=== PATIENT | female | born 1980 | race Caucasian/White ===

== ENCOUNTER 2018-10-07 16:21 | Emergency (ER) | payer OTHER, MEDICAID ==
[~2018-10-07] VITALS: Ht 160 cm; Wt 111.7 kg
[2018-10-07 16:55] VITALS: BP 189/73
--- NOTE | 2018-10-07 17:34 | NUR ---
PT TO BED 3 VIA WHEELCHAIR
--- NOTE | 2018-10-07 17:37 | NUR ---
38 YO F BIB FOR ABSCESS TO THE BACK OF THE NECK X 3 DAYS. N/V X THIS MORNING W/ FEVER YESTERDAY. AFEBRILE AT THIS TIME. NO ANTIPYRETICS. LEFT SHUNT. STILL PRODUCES URINE APPROX 3X/DAY. DIALYSIS M, W, F. REPORTS INTERMITTENT DIZZNESS WHEN SHE TURNS HER NECK.
--- NOTE | 2018-10-07 17:50 | NUR ---
PT A&OX4, C/O ABSCESS TO RIGHT SIDE POSTERIOR NECK X 3 DAYS. PT STS PAIN 10/10. NO ACTIVE DRAINAGE NOTED OR REPORTED.
[2018-10-07] MEDS ORDERED: HYDROcodone/APAP 5/325 MG 1 TAB TAB PO ONE (18:10)
[2018-10-07 18:16] VITALS: BP 189/73
--- NOTE | 2018-10-07 18:17 | NUR ---
Patient discharged with v/s stable. Written and verbal after care instructions given and explained. Patient alert, oriented and verbalized understanding of instructions. Ambulatory with steady gait. All questions addressed prior to discharge. ID band removed. Patient advised to follow up with PMD. Rx of NORCO, CEPHALEXIN given. Patient educated on indication of medication including possible reaction and side effects. Opportunity to ask questions provided and answered.
== END 2018-10-07 18:17 | disposition home or self-care (01) ==
LOC: MED 16:21
DX: L03.221 Cellulitis of neck (principal); E11.9 Type 2 diabetes mellitus without complications; I10 Essential (primary) hypertension; N28.9 Disorder of kidney and ureter, unspecified; Z99.2 Dependence on renal dialysis; Z98.890 Other specified postprocedural states
CPT/HCPCS: 99283

== ENCOUNTER 2018-10-11 10:45 | Emergency (ER) | payer OTHER, MEDICAID ==
[~2018-10-11] VITALS: Ht 172.7 cm; Wt 108.9 kg
[2018-10-11 11:00] VITALS: BP 141/74
--- NOTE | 2018-10-11 11:14 | NUR ---
PATIENT TAKEN TO ER BED 10 VIA PERSONAL WHEELCHAIR
--- NOTE | 2018-10-11 11:33 | NUR ---
PT C/O NECK ABSCESS WITH PAIN. PT STATES ABSCESS STARTED SMALL AND HAS GROWN IN SIZE AND PAIN HAS INCREASED WITH MOVEMENT. VSS; PATIENT POSITIONED FOR COMFORT; HOB ELEVATED; BEDRAILS UP X1; BED DOWN. ER MD MADE AWARE OF PT STATUS.
[2018-10-11] MEDS ORDERED: LIDOCAINE 2% 1000 MG/50 ML VIAL INJ ONE (11:35)
[2018-10-11] MEDS ORDERED: IBUPROFEN 800 MG TAB PO ONE (12:00)
[2018-10-11 12:38] VITALS: BP 141/74
--- NOTE | 2018-10-11 12:38 | NUR ---
Patient discharged with v/s stable. Written and verbal after care instructions given and explained. Patient alert, oriented and verbalized understanding of instructions. Ambulatory with steady gait. All questions addressed prior to discharge. ID band removed. Patient advised to follow up with PMD. Rx of BACTRIM AND TRAMADOL given. Patient educated on indication of medication including possible reaction and side effects. Opportunity to ask questions provided and answered.
== END 2018-10-11 12:38 | disposition home or self-care (01) ==
LOC: MED 10:45
DX: L02.11 Cutaneous abscess of neck (principal); E11.9 Type 2 diabetes mellitus without complications; I10 Essential (primary) hypertension; N28.9 Disorder of kidney and ureter, unspecified; Z99.2 Dependence on renal dialysis
CPT/HCPCS: 10060; 99283; J2001

== ENCOUNTER 2018-10-14 13:46 | Emergency (ER) | payer OTHER, MEDICAID ==
[~2018-10-14] VITALS: Ht 172.7 cm; Wt 109.8 kg
[2018-10-14 13:55] VITALS: BP 144/71
--- NOTE | 2018-10-14 14:52 | NUR ---
PT IN OWN PERSONAL WHEELCHAIR TO ER BED 11
--- NOTE | 2018-10-14 15:02 | NUR ---
PT. BIB FAMILY MEMBER FOR RECHECK FOR ABSCESS ON HER NECK SEEN ON 10/11/18. PT STATES " I AM HERE TO GET THE PACKING REMOVED, DR. ABRAMS TOLD ME". CLEAN AND COOL TO TOUCH NO DRAINAGE NOTED TO ABSCESS ON BACK OF NECK. PT DENIES ANY N/V/D. DENIES ANY FEVERS OR CHILLS. ER MD MADE AWARE. SAFETY PRECAUTIONS IN PLACE. WILL CONTINUE TO MONITOR. PROVIDED WITH ICE CHIPS. HX; HTN, DM, RENAL DZ, LT ARM AV SHUNT
[2018-10-14 15:28] VITALS: BP 147/68
--- NOTE | 2018-10-14 15:28 | NUR ---
Patient discharged with v/s stable. Written and verbal after care instructions given and explained. Patient verbalized understanding. Wheel Chair Assisted with steady gait. All questions addressed prior to discharge. Advised to follow up with PMD.
== END 2018-10-14 15:28 | disposition home or self-care (01) ==
LOC: MED 13:46
DX: M54.2 Cervicalgia (principal); I12.9 Hypertensive chronic kidney disease with stage 1 through stage 4 chronic kidney disease, or unspecified chronic kidney disease; E11.22 Type 2 diabetes mellitus with diabetic chronic kidney disease; N18.6 End stage renal disease; Z99.2 Dependence on renal dialysis; Z98.890 Other specified postprocedural states
CPT/HCPCS: 99283

== ENCOUNTER 2019-01-18 14:42 | Emergency (ER) | payer OTHER, MEDICAID ==
[~2019-01-18] VITALS: Ht 172.7 cm; Wt 108.9 kg
[2019-01-18 14:54] VITALS: BP 200/92
--- NOTE | 2019-01-18 15:31 | NUR ---
BIB . AAO X4 C/O CHEST PAIN WITH TIGHTNESS 8/10, COUGH WITH GREEN SPUTUM, SOB, SORE THROAT X2 DAYS. EQUAL CLEAR RAEANN LUNGS UPON AUSCULTATION. PT O2 SAT 100% RA. PT PLACED ON FULL DESK CLERKS SUPERVISOR. HOB UP. BED SIDE RAILS UP X1. ON LOW BED POSITION, LOCKED. ER TO EVALUATE PT.
--- NOTE | 2019-01-18 15:31 | NUR ---
Patient ambulated to bed 6. RN evaluating patient at bedside.
[2019-01-18] MEDS ORDERED: methylPREDNISolone SS 125 MG/2 ML VIAL IVP ONE (15:50)
[2019-01-18] MEDS ORDERED: IPRATROPIUM 0.02% 0.5 MG/2.5 ML NEBU INH ONE (15:50)
[2019-01-18] MEDS ORDERED: FUROSEMIDE 40 MG/4 ML VIAL IVP ONE (15:50)
[2019-01-18] MEDS ORDERED: ALBUTEROL 0.083% 2.5 MG/3 ML NEBU INH ONE (15:50)
--- NOTE | 2019-01-18 16:03 | NUR ---
ADMITTING CHEST PAIN HX: DENIES ASTHMA/COPD C/O SOB EDUCATION PROVIDED TO PATIENT WITH ACKNOWLEDGEMENT ON HHN THERAPY AND RESPIRATORY DRUGS FOREMENTIONED GIVEN ORDERED ENCOURAGED PATIENT FOR INTERMITTENT DEEP BREATHING DURING THERAPY
--- NOTE | 2019-01-18 16:05 | NUR ---
Breathing treatment administered at bedside by respiratory therapist.
[2019-01-18 16:32] LABS: BASOPHILS # (AUTO) 0.1 K/uL (0.00-0.22); BASOPHILS % (AUTO) 1.2 % (0.0-2.0); EOSINOPHILS # (AUTO) 0.4 K/uL (0-0.4); EOSINOPHILS % (AUTO) 3.7 % (0.0-4.0); HEMATOCRIT 28.9 % (36-48); HEMOGLOBIN 9.7 g/dL (12.0-16.0); LYMPHOCYTES % (AUTO) 21.3 % (20.5-51.1); MEAN CORPUSCULAR HEMOGLOBIN 34 pg (27-31); MEAN CORPUSCULAR HGB CONC 34 g/dL (33-37); MEAN CORPUSCULAR VOLUME 99.9 fL (80-94); MONOCYTES # (AUTO) 0.6 K/uL (0.8-1.0); MONOCYTES % (AUTO) 6.5 % (1.7-9.3); NEUTROPHILS # (AUTO) 6.4 K/uL (1.8-7.7); NEUTROPHILS % (AUTO) 67.3 % (42.2-75.2); PLATELET COUNT (AUTO) 216 K/uL (140-450); RED BLOOD CELL COUNT(AUTO) 2.89 MIL/uL (4.20-5.40); RED CELL DISTRIBUTION WIDTH 16.8 % (11.6-13.7); WHITE BLOOD COUNT (AUTO) 9.6 K/uL (4.8-10.8)
[2019-01-18] MEDS ORDERED: MORPHINE SULFATE 4 MG/ML SYR IM ONE (16:45)
[2019-01-18 16:49] LABS: ALBUMIN 3.2 g/dL (3.4-5.0); ANION GAP 14.8 (8-16); POTASSIUM 4.8 mmol/L (3.5-5.1); TOTAL BILIRUBIN 0.4 mg/dL (0.0-1.0)
[2019-01-18 16:55] LABS: CREATININE 9.1 mg/dL (0.6-1.3)
--- NOTE | 2019-01-18 17:40 | NUR ---
PT WHEEL CHAIR ASSISTED TO THE BATHROOM. ACCOMPANIED .
--- NOTE | 2019-01-18 17:50 | NUR ---
PT BACK TO BED VIA WHEEL CHAIR. PT PLACED BACK TO ON CLIENT SUCCESS SPECIALIST.
--- NOTE | 2019-01-18 18:15 | NUR ---
PT BP ELEVATED: 170/80, 71. NO SIGNS AND SYMPTOMS OF DISTRESS NOTED. DR MERCHANT NOTIFIED. NO FURTHER ORDERS.
[2019-01-18 18:35] VITALS: BP 170/80
--- NOTE | 2019-01-18 18:35 | NUR ---
Patient discharged with v/s stable. Written and verbal after care instructions given and explained. Patient alert, oriented and verbalized understanding of instructions. Wheel Chair Assisted by to car. All questions addressed prior to discharge. ID band removed. Patient advised to follow up with PMD. Rx of Tramadol Hydrochloride given. Patient educated on indication of medication including possible reaction and side effects. Opportunity to ask questions provided and answered.
== END 2019-01-18 18:35 | disposition home or self-care (01) ==
LOC: MED 14:42
DX: R07.89 Other chest pain (principal); R05 Cough; E11.22 Type 2 diabetes mellitus with diabetic chronic kidney disease; I12.0 Hypertensive chronic kidney disease with stage 5 chronic kidney disease or end stage renal disease; N18.6 End stage renal disease; Z89.511 Acquired absence of right leg below knee
CPT/HCPCS: 36415; 71045; 80053; 83880; 84484; 85025; 94640; 96374; 96375; 99284; J1940; J2270; J2930; J7613; J7644; Q0092

== ENCOUNTER 2020-05-16 19:26 | Emergency (ER) | payer OTHER, MEDICAID ==
[~2020-05-16] VITALS: Ht 172.7 cm; Wt 104.3 kg
[2020-05-16 19:45] VITALS: BP 195/87
[2020-05-16] MEDS ORDERED: MORPHINE SULFATE 4 MG/ML SYR IM ONE (20:05)
[2020-05-16] MEDS ORDERED: LIDOCAINE/EPI 1% 1:100000 20 ML VIAL INJ ONE (20:05)
[2020-05-16] MEDS ORDERED: CLINDAMYCIN 600 MG/4 ML VIAL IM ONE (20:05)
[2020-05-16] MEDS ORDERED: HYDROcodone/APAP 5/325 MG 1 TAB TAB PO ONE (21:00)
[2020-05-16 21:07] VITALS: BP 182/81
== END 2020-05-16 21:07 | disposition home or self-care (01) ==
LOC: MED 19:26
DX: L02.416 Cutaneous abscess of left lower limb (principal); E11.22 Type 2 diabetes mellitus with diabetic chronic kidney disease; I12.0 Hypertensive chronic kidney disease with stage 5 chronic kidney disease or end stage renal disease; N18.6 End stage renal disease; Z99.2 Dependence on renal dialysis; Z98.890 Other specified postprocedural states
CPT/HCPCS: 10060; 96372; 99284; J2001; J2270; J3490

== ENCOUNTER 2020-05-19 19:39 | Emergency (ER) | payer OTHER, MEDICAID ==
[~2020-05-19] VITALS: Ht 172.7 cm; Wt 108.9 kg
[2020-05-19 19:53] VITALS: BP 156/71
[2020-05-19] MEDS ORDERED: NEOMYCIN/POLYMYXIN/BACITRACIN 0.9 GM/1 PKT TP ONE ×3 (20:10→20:15)
[2020-05-19] MEDS ORDERED: NEOMYCIN/POLYMYXIN/BACITRACIN OIN 15 GM TUBE TP ONE (20:10)
[2020-05-19 20:17] VITALS: BP 156/71
== END 2020-05-19 20:15 | disposition home or self-care (01) ==
LOC: MED 19:39
DX: L02.416 Cutaneous abscess of left lower limb (principal); R03.0 Elevated blood-pressure reading, without diagnosis of hypertension; Z48.00 Encounter for change or removal of nonsurgical wound dressing; E11.9 Type 2 diabetes mellitus without complications; I10 Essential (primary) hypertension; Z87.448 Personal history of other diseases of urinary system
CPT/HCPCS: 99282

== ENCOUNTER 2020-12-02 03:40 | Inpatient (IN) | payer OTHER, MEDICAID, SELFPAY ==
[~2020-12-02] VITALS: Ht 172.7 cm; Wt 97.5 kg
[2020-12-02 03:44] VITALS: BP 150/73
--- NOTE | 2020-12-02 03:44 | NUR ---
TO BED VIA WHEELCHAIR
--- NOTE | 2020-12-02 04:01 | NUR ---
40 Y/O FEMALE CAME TO THE ED WITH ABSCESS IN THE BUTTOCKS. PT STATES THAT SHE STARTED HAVING ABSCESS TWO WEEKS AGO, THEN IT "POPPED". SHE STATES 10/10 SHARP PAIN. NKA PMH: DM, HTN, DIALYSIS, HLD
--- NOTE | 2020-12-02 04:09 | NUR ---
Dr. Espinoza examining patient.
[2020-12-02] MEDS ORDERED: ONDANSETRON 4 MG ODT PO ONE ×3 (04:20→07:25)
[2020-12-02] MEDS ORDERED: HYDROcodone/APAP 10/325 MG 1 TAB TAB PO ONE (04:20)
[2020-12-02] MEDS ORDERED: CLINDAMYCIN 600 MG/4 ML VIAL IM ONE (04:20)
[2020-12-02] MEDS ORDERED: LIDOCAINE MPF 1% 10 MG/ML VIAL INJ ONE (04:25)
--- NOTE | 2020-12-02 04:30 | NUR ---
BLOOD LABS COLLECTED AND SENT TO LAB
[2020-12-02 05:01] LABS: BASOPHILS # (AUTO) 0.1 K/uL (0.00-0.22); BASOPHILS % (AUTO) 0.7 % (0.0-2.0); EOSINOPHILS # (AUTO) 0.2 K/uL (0-0.4); EOSINOPHILS % (AUTO) 2.3 % (0.0-4.0); HEMATOCRIT 32.1 % (36-48); HEMOGLOBIN 10.8 g/dL (12.0-16.0); LYMPHOCYTES # (AUTO) 1.2 K/uL (2.5-16.5); LYMPHOCYTES % (AUTO) 11.4 % (20.5-51.1); MEAN CORPUSCULAR HEMOGLOBIN 32 pg (27-31); MEAN CORPUSCULAR HGB CONC 34 g/dL (33-37); MEAN CORPUSCULAR VOLUME 96.3 fL (80-94); MONOCYTES # (AUTO) 0.8 K/uL (0.8-1.0); MONOCYTES % (AUTO) 7.8 % (1.7-9.3); NEUTROPHILS # (AUTO) 7.9 K/uL (1.8-7.7); NEUTROPHILS % (AUTO) 77.8 % (42.2-75.2); PLATELET COUNT (AUTO) 193 K/uL (140-450); RED BLOOD CELL COUNT(AUTO) 3.33 MIL/uL (4.20-5.40); RED CELL DISTRIBUTION WIDTH 15.3 % (11.6-13.7); WHITE BLOOD COUNT (AUTO) 10.2 K/uL (4.8-10.8)
[2020-12-02 05:10] LABS: ALBUMIN 3.3 g/dL (3.4-5.0); ANION GAP 15.4 (8-16); CARBON DIOXIDE 26.3 mmol/L (21-32); POTASSIUM 4.7 mmol/L (3.5-5.1); TOTAL BILIRUBIN 0.3 mg/dL (0.0-1.0)
[2020-12-02 05:12] LABS: CREATININE 9.2 mg/dL (0.6-1.3)
--- NOTE | 2020-12-02 05:18 | NUR ---
COLLECTED ABSCESS CULTURE; SENT TO LAB, HANDED TO GOKUL
--- NOTE | 2020-12-02 05:46 | NUR ---
PT TAKEN TO CT
--- NOTE | 2020-12-02 05:58 | NUR ---
PT RETURN FROM CT
--- NOTE | 2020-12-02 06:49 | NUR ---
COLLECTED NIGHAT; SENT TO LAB HANDED TO CPT ISIDRO
[2020-12-02] MEDS ORDERED: INSU100S53 SC (06:55)
[2020-12-02] MEDS ORDERED: INSU100S45 SUBQ (06:55)
[2020-12-02] MEDS ORDERED: LISI20TA30 PO (06:55)
[2020-12-02] MEDS ORDERED: OMEP20TC12 PO (06:55)
[2020-12-02] MEDS ORDERED: CALC-1123 PO (06:57)
[2020-12-02] MEDS ORDERED: AMLO2.5T PO (06:58)
[2020-12-02] MEDS ORDERED: MORPHINE SULFATE 4 MG/ML SYR IM ONE (07:00)
[2020-12-02] MEDS ORDERED: MORPHINE SULFATE 4 MG/ML SYR IVP SCH (07:10)
[2020-12-02] MEDS ORDERED: ONDANSETRON 4 MG/2 ML VIAL IVP ONE (07:10)
--- NOTE | 2020-12-02 07:19 | NUR ---
RAD AT BEDSIDE
--- NOTE | 2020-12-02 07:23 | NUR ---
REPORT RECEIVED FROM HEENA JUNIOR, TRANSFER OF CARE AT THIS TIME
--- NOTE | 2020-12-02 07:27 | NUR ---
GIVEN REPORT TO MITCHELL JUNIOR FOR CONTINUITY OF CARE
--- NOTE | 2020-12-02 07:57 | NUR ---
RECEIVED REPORT FROM ER NURSE MITCHELL PATIENT IS AAOX4 ON ROOM AIR. AMBULATORY,NPO WITH RIGHT LOWER LEG PROSTHETIC, LEFT UPPER ARM AV SHUNT, SKIN INTACT AND CC OF ABSCESS IN THE RIGHT GLUTEAL FOR 2 WEEKS CAME FROM HOME AND NEGATIVE RAPID. NORCO PAIN MEDS GIVEN AT 0325 AM FOR PAIN 10/10 AND MORPHINE AT 0700. CLINDAMYCIN GIVEN 600MG AND ZOFRAN.
--- NOTE | 2020-12-02 08:02 | NUR ---
REPORT GIVEN TO TEJA JUNIOR FOR ADMINISSION TO MED/SURG 119B. ETA 10 MINS
--- NOTE | 2020-12-02 08:03 | NUR ---
Female Dust Control Engineer accompanied female patient for ABCESS NEAR GENITALIA Exam.
[2020-12-02] MEDS ORDERED: ONDANSETRON 4 MG/2 ML VIAL IM/IVP PRN (08:10)
[2020-12-02] MEDS ORDERED: guaiFENesin DM 200/20 MG-10 ML 10 ML UDC PO PRN (08:10)
[2020-12-02] MEDS ORDERED: ZOLPIDEM 5 MG TAB PO PRN (08:10)
[2020-12-02] MEDS ORDERED: DOCUSATE SODIUM 100 MG GELCAP PO PRN (08:10)
[2020-12-02] MEDS ORDERED: POTASSIUM CHLORIDE 10 MEQ TABER PO PRN (08:10)
[2020-12-02] MEDS ORDERED: ACETAMINOPHEN 325 MG TAB PO PRN (08:10)
--- NOTE | 2020-12-02 08:17 | NUR ---
Patient will be admitted to care of Dr. Sonido Little. Admited to Med/Surg. Will go to room 119B. Belongings list completed. Report to Tonia JUNIOR.
[2020-12-02 08:20] VITALS: BP 155/55
--- NOTE | 2020-12-02 08:20 | NUR ---
PATIENT BROUGHT TO THE UNIT VIA GURNEY ASSISTED TO BED AND CHECK VITAL SIGNS BP 155/55 NM 70 RR 18 TEMP 98.5 OXYGEN SATURATION 98% ORIENTED TO ROOM SAFETY MEASURES IN PLACE AND CALL LIGHT WITHIN REACH. WILL CONTINUE TO MONITOR.
--- NOTE | 2020-12-02 08:35 | NUR ---
MRSA NARES RIGHT AND LEFT TAKEN AND SENT TO LAB.
[2020-12-02 08:38] LABS: PROTHROMBIN TIME 9.2 secs (10.8-13.4)
[2020-12-02 08:43] LABS: CHOL/HDL RATIO 6.6 (1-4.5); FREE T4 (FREE THYROXINE) 1.12 ng/dL (0.76-1.46); MAGNESIUM 2.6 mg/dL (1.8-2.4); PHOSPHORUS 2.3 mg/dL (2.5-4.9); THYROID STIMULATING HORMONE 4.3 uIU/mL (0.34-3.74)
--- NOTE | 2020-12-02 08:49 | NUR ---
CONSENT GIVEN BY PATIENT AT BEDSIDE FOR INCISION AND DRAINAGE OF ABSCESS ON THE RIGHT BUTTOCKS UNDER DR MARIN.
--- NOTE | 2020-12-02 08:55 | NUR ---
PATIENT CONSENTED TO DO HEMODIALYSIS TODAY.
[2020-12-02] MEDS: PANTOPRAZOLE 40 MG TABEC PO SCH (09:00)
--- NOTE | 2020-12-02 09:20 | NUR ---
PATIENT OUT IN HER ROOM FOR SURGERY PT IS STABLE
[2020-12-02] MEDS ORDERED: ONDANSETRON 4 MG/2 ML VIAL ONE (09:30)
[2020-12-02] MEDS ORDERED: PROPOFOL 200 MG/20 ML VIAL IV ONE (09:30)
[2020-12-02] MEDS ORDERED: fentaNYL citrate 0.05 MG/ML VIAL ONE (09:30)
[2020-12-02] MEDS ORDERED: DESFLURANE 240 ML BTL INH ONE (09:30)
[2020-12-02] MEDS ORDERED: HYDROmorphone PFS 2 MG/ML SYR ONE (10:08)
[2020-12-02] MEDS: HYDROmorphone 1 MG/ML AMP IVP PRN ×2 (10:11→10:24)
--- NOTE | 2020-12-02 10:30 | NUR ---
PATIENT HAS BEEN SCREENED AND CATEGORIZED MODERATE NUTRITION RISK. PATIENT WILL BE SEEN WITHIN 3-5 DAYS OF ADMISSION. 12/05/20 12/07/[address]
--- NOTE | 2020-12-02 11:00 | NUR ---
PATIENT BACK IN HER ROOM S/P INCISION AND DRAINAGE ON RIGHT BUTTOCK. DRY AND INTACT. CHECK VITAL SIGNS BP 141/63 WA 80 RR 20 TEMP 97.5 OXYGEN SAT 95% PT IS AWAKE AND STABLE NO DISTRESS NOTED.
--- NOTE | 2020-12-02 11:30 | NUR ---
CALLED DIALYSIS NURSE ABOUT PATIENT HEMODIALYSIS TODAY.
[2020-12-02] MEDS: DEXT 5% /NACL 0.9% 1,000 ML IV SCH ×2 (11:40→21:30)
[2020-12-02] MEDS: HYDROcodone/APAP 7.5/325 MG 1 TAB PO PRN ×2 (11:51→17:46)
[2020-12-02 12:00] VITALS: BP 141/63
--- NOTE | 2020-12-02 12:47 | NUR ---
SOCIAL WORK NOTE: Patient's Orientation Person Situation Place Time Information Provided By PATIENT Comments SW MET PATIENT AT BEDSIDE TO COMPLETE ASSESSMENT. Manager Technical Training, Realtionship and Phone Number JASON CHAIREZ [phone] Healthcare Power of Broadcast Traffic Coordinator No Does Patient Have a POLST No Identifying Problems No Social Work Triggers Is A Social Work Consult Needed No Mandate Report Filed No Explanation Of Identifying Problems PATIENT IS A 40-YEAR-OLD FEMLAE ADMITTED FOR RIGHT SIDED GLUTEAL ABSCESS. PATIENT HAS PMHX OF HYPERTENSION, DIABETES, AND RENAL DISEASE. Admitted From Home Pre-Admission Level Of Functioning Status Assist With ADL Level Of Functioning Comment PATIENT STATED THAT SHE NEEDS ASSISTANCE WITH MEDICATION MANAGEMENT, INSULIN, BATHING, AND PREPARING MEALS. Prior Resources/Services Used In Last 12 Months [facility] Prior Resources/Service Comments PATIENT RECEIVES 104 HOURS FROM [facility] MONTHLY. Prior DME Walker Wheelchair Dialysis Hemodialysis Name And Phone Number of Dialysis Facility LOCATED WITHIN [facility] Living Situation Lives With Family House Patient Had Caregiver [place] and Contact Number Of Designated Caregiver JASON CHAIREZ - [phone] Home Support No Caregiver Issues Financial Issues No Known Financial Issue Referral To The Financial Counselor Needed No Factors/Needs No D/C Needs Identified Pt/Rep Participated In Discharge Plan Yes Patient/Family Agress With Discharge Plan Yes Discharge Plan Comments TENTATIVE DISCHARGE PLAN IS FOR PATIENT TO RETURN HOME. DC Plan Status Initiated
--- NOTE | 2020-12-02 13:50 | NUR ---
DC PLANNIN YRS OLD FEMALE PATIENT WAS ADMITTED FROM HOME WITH A DX OF RIGHT SIDED GLUTEAL ABSCESS. PT HAS A HX OF HTN, DM, AND ESRD ON HEMODIALYSIS --, RT BUTTOCK WOUND AND DKA. CT PELVIS SHOWED SOFT TISSUE LESION ALONG THE RIGHT MEDIAL BUTTOCK. ADMINISTERED IVF, IV ABX ROCEPHIN. CONSULTED WITH SURGEON AND NEPHRO. DR MARIN PERFORMED I&D OF RIGHT BUTTOCK. DC PLAN TO GO HOME WHEN STABLE CM TO FOLLOW.
--- NOTE | 2020-12-02 15:08 | NUR ---
PATIENT STARTED ON HEMODIALYSIS. PT STABLE
[2020-12-02 16:00] VITALS: BP 138/74
--- NOTE | 2020-12-02 17:16 | NUR ---
MADE ROUNDS PATIENT ON GOING DIALYSIS, PT IS STABLE AND NO DISTRESS NOTED.
--- NOTE | 2020-12-02 17:46 | NUR ---
PATIENT COMPLAINS OF PAIN / CHECK VITAL SIGNS PRIOR TO MEDICATION BP 140/59 RI 79. PT IS STABLE AND EATING COMFORTABLY.
--- NOTE | 2020-12-02 18:14 | NUR ---
HEMODIALYSIS COMPLETE 3LITERS OUTPUT.
--- NOTE | 2020-12-02 19:25 | NUR ---
ENDORSED TO NIGHT NURSE FOR CONTINUITY OF CARE.PT IS STABLE.
--- NOTE | 2020-12-02 19:26 | NUR ---
RECEIVED PATIENT FROM AM SHIFT RN AWAKE, ALERT ORIENTED X4. ON BED WELL RESTED. NO ACUTE DISTRESS. BREATHING REGULAR NON LABORED, ON IVF INFUSING WELL. SKIN WARM AND DRY TO TOUCH. DENIES PAIN AT THIS TIME. NEEDS WELL ATTENDED. PATIENT STILL UNABLE TO OBTAIN URINE FOR DRUG SCREENING. WILL CONTINUE TO MONITOR.
[2020-12-02 20:00] VITALS: BP 148/76
--- NOTE | 2020-12-02 21:40 | NUR ---
CHECKED PATIENT LYING COMFORTABLY IN BED NO DISTRESS. AFEBRILE.
--- NOTE | 2020-12-02 23:45 | NUR ---
MADW ROUNDS PATIENT SLEEPING, CALL LIGHT WITHIN REACH.
[2020-12-03 04:00] VITALS: BP 153/71
[2020-12-03 06:29] LABS: BASOPHILS % (AUTO) 0.3 % (0.0-2.0); EOSINOPHILS % (AUTO) 0.2 % (0.0-4.0); HEMOGLOBIN 9.4 g/dL (12.0-16.0); LYMPHOCYTES # (AUTO) 1.1 K/uL (2.5-16.5); LYMPHOCYTES % (AUTO) 12.6 % (20.5-51.1); MEAN CORPUSCULAR HEMOGLOBIN 33 pg (27-31); MEAN CORPUSCULAR HGB CONC 34 g/dL (33-37); MEAN CORPUSCULAR VOLUME 96.8 fL (80-94); MONOCYTES # (AUTO) 0.8 K/uL (0.8-1.0); MONOCYTES % (AUTO) 8.7 % (1.7-9.3); NEUTROPHILS % (AUTO) 78.2 % (42.2-75.2); PLATELET COUNT (AUTO) 192 K/uL (140-450); RED CELL DISTRIBUTION WIDTH 15.2 % (11.6-13.7)
[2020-12-03] MEDS ORDERED: MORPHINE SULFATE 2 MG/ML SYR IVP PRN ×2 (07:05→09:05)
[2020-12-03 07:07] LABS: ANION GAP 17.4 (8-16); CARBON DIOXIDE 21.8 mmol/L (21-32); POTASSIUM 5.2 mmol/L (3.5-5.1)
--- NOTE | 2020-12-03 07:30 | NUR ---
RECEIVED BEDSIDE REPORT FROM TERRAZZO WORKER APPRENTICE NURSE. PATIENT AOX4. PATIENT ABLE TO MAKE NEEDS KNOWN. RESPIRATION EVEN AND UNLABORED. NO RESPIRATORY DISTRESS NOTED. IV SITE ON RH 24G INFUSING FLUIDS WELL. INTACT AND PATENT. SKIN WARM AND DRY TO TOUCH. NOTED OPEN WOUND ON RIGHT BUTTOCKS. S/P INCISION AND DRAIN OF RIGHT ABSCESS. PLAN OF CARE DISCUSSED. SAFETY PRECAUTIONS IN PLACE. CALL LIGHT WITHIN REACH. WILL CONTINUE TO MONITOR.
[2020-12-03 07:42] LABS: CREATININE 7.3 mg/dL (0.6-1.3)
[2020-12-03 08:00] VITALS: BP 147/68
[2020-12-03 08:07] LABS: T4 (THYROXINE) 7.7 ug/dL (4.5-12.0)
[2020-12-03] MEDS ORDERED: DEXTROSE 50% 50 ML SYR IVP PRN (08:15)
[2020-12-03] MEDS: INSULIN LISPRO SLIDING SCALE 100 UNITS/ML VIAL SUBQ PRN ×4 (08:45→20:53)
--- NOTE | 2020-12-03 09:00 | NUR ---
ALL SCHEDULED MEDS GIVEN. PT IS STABLE. NO DISTRESS NOTED. WILL CONTINUE TO MONITOR.
[2020-12-03] MEDS: PANTOPRAZOLE 40 MG TABEC PO SCH (09:01)
[2020-12-03] MEDS: HYDROmorphone 2 MG TAB PO PRN ×3 (10:20→23:44)
--- NOTE | 2020-12-03 10:20 | NUR ---
PATIENT COMPLAINED OF 10/10 PAIN RIGHT GLUTEAL PAIN. ADMINISTERED OXYCONTIN PO PER MD ORDERED.
[2020-12-03] MEDS: DEXT 5% /NACL 0.9% 1,000 ML IV SCH (10:50)
[2020-12-03] MEDS: BLOOD GLUCOSE MONITORING 1 DEV DEV FS SCH ×3 (12:07→20:52)
--- NOTE | 2020-12-03 12:24 | NUR ---
BLOOD GLUCOSE CHECK IS 355. ADMINISTERED 10 UNITS OF INSULIN SQ PER MD ORDERED.
--- NOTE | 2020-12-03 15:45 | NUR ---
CHECKED ON PATIENT. PATIENT IS STABLE. NO DISTRESS NOTED. WILL CONTINUE TO MONITOR.
--- NOTE | 2020-12-03 17:10 | NUR ---
DRESSED PACKING AND DRESSING. KEPT CLEAN AND DRY. MEDICATED WITH OXYCONTIN PO PRN PRIOR TO DRESSING CHANGE TO REDUCE PAIN.
--- NOTE | 2020-12-03 17:20 | NUR ---
BLOOD SUGAR CHECK IS 278. ADMINISTERED 6 UNITS OF INSULIN SQ PER MD ORDERED.
--- NOTE | 2020-12-03 19:30 | NUR ---
ENDORSED TO LOGISTICIAN NURSE FOR CONTINUITY OF CARE. PT IS STABLE.
[2020-12-03 20:00] VITALS: BP 150/63
--- NOTE | 2020-12-03 20:00 | NUR ---
RECEIVED REPORT FROM DAY RN EARLIER REGARDING THE PATIENT FOR CONTINUITY OF CARE. PATIENT LAYING IN BED NOT IN ANY DISTRESS AND NO COMPLAIN AT THIS TIME.SP I & D OF THE RT BUTTOCKS. DRESSING C/D/I, NO OOZING NOTED. VSS, AFEBRILE, SATING 98% ON RA. FALL PRECAUTION IMPLEMENTED.PT VERBALIZED UNDERSTANDING WITH THE POC. CALL LIGHT WITHIN REACH. WILL CONTINUE POC.
--- NOTE | 2020-12-03 22:00 | NUR ---
CHECKED THE BLOOD SUGAR 258. SSI GIVEN PER ORDER.
--- NOTE | 2020-12-04 | NUR ---
MEDICATED THE PT FOR PAIN EARLIER. NO COMPLAIN AT THIS TIME.
--- NOTE | 2020-12-04 02:00 | NUR ---
PATIENT ASLEEP AT THIS TIME. VISIBLE CHEST RISE AND FALL NOTED. SAFETY MEASURES IN PLACED.
[2020-12-04 04:00] VITALS: BP 149/71
--- NOTE | 2020-12-04 04:00 | NUR ---
VITAL SIGNS STABLE, AFEBRILE, SATING 99% ON RA. NO COMPLAIN OF PAIN AT THIS TIME.
--- NOTE | 2020-12-04 05:03 | NUR ---
OFFERED TO DO SITZ BATH AND DRESSING CHANGE ON THE PATIENT RIGHT BUTTOCKS BUT THE PT REFUSED.
--- NOTE | 2020-12-04 06:00 | NUR ---
PT STABLE. NO ACUTE EVENTS THROUGHOUT THE NIGHT. PATIENT NOT IN ANY DISTRESS. NO COMPLAIN AT THIS TIME.ALL NEEDS ATTENDED. WILL ENDORSE TO THE ONCOMING RN FOR CONTINUITY OF CARE.
[2020-12-04] MEDS: BLOOD GLUCOSE MONITORING 1 DEV DEV FS SCH ×2 (06:21→11:22)
[2020-12-04] MEDS: INSULIN LISPRO SLIDING SCALE 100 UNITS/ML VIAL SUBQ PRN ×2 (06:22→11:35)
[2020-12-04 07:12] LABS: BASOPHILS # (AUTO) 0.1 K/uL (0.00-0.22); EOSINOPHILS # (AUTO) 0.3 K/uL (0-0.4); EOSINOPHILS % (AUTO) 3.9 % (0.0-4.0); HEMATOCRIT 28.7 % (36-48); HEMOGLOBIN 9.4 g/dL (12.0-16.0); LYMPHOCYTES # (AUTO) 1.7 K/uL (2.5-16.5); LYMPHOCYTES % (AUTO) 23.8 % (20.5-51.1); MEAN CORPUSCULAR HEMOGLOBIN 33 pg (27-31); MEAN CORPUSCULAR HGB CONC 33 g/dL (33-37); MONOCYTES # (AUTO) 0.8 K/uL (0.8-1.0); MONOCYTES % (AUTO) 10.5 % (1.7-9.3); NEUTROPHILS # (AUTO) 4.4 K/uL (1.8-7.7); NEUTROPHILS % (AUTO) 60.8 % (42.2-75.2); PLATELET COUNT (AUTO) 82 K/uL (140-450); RED BLOOD CELL COUNT(AUTO) 2.84 MIL/uL (4.20-5.40); RED CELL DISTRIBUTION WIDTH 15.6 % (11.6-13.7); WHITE BLOOD COUNT (AUTO) 7.2 K/uL (4.8-10.8)
[2020-12-04 07:33] LABS: ANION GAP 17.7 (8-16); CARBON DIOXIDE 21.1 mmol/L (21-32); POTASSIUM 4.8 mmol/L (3.5-5.1)
[2020-12-04 07:35] LABS: CREATININE 9.6 mg/dL (0.6-1.3)
--- NOTE | 2020-12-04 07:36 | NUR ---
ENDORSED PT TO DAY RN FOR CONTINUITY OF CARE. SIGNING OFF.
--- NOTE | 2020-12-04 07:40 | NUR ---
RECEIVED BEDSIDE REPORT FROM SENIOR ADMINISTRATOR SUPPORT NURSE. PATIENT AOX4. PATIENT ABLE TO MAKE NEEDS KNOWN. RESPIRATION EVEN AND UNLABORED. NO RESPIRATORY DISTRESS NOTED. IV SITE ON RH 24G INFUSING FLUIDS WELL. INTACT AND PATENT. SKIN WARM AND DRY TO TOUCH. NOTED OPEN WOUND ON RIGHT BUTTOCKS. S/P INCISION AND DRAIN OF RIGHT ABSCESS. PLAN OF CARE DISCUSSED. SAFETY PRECAUTIONS IN PLACE. CALL LIGHT WITHIN REACH. WILL CONTINUE TO MONITOR.
[2020-12-04 08:00] VITALS: BP 133/62
--- NOTE | 2020-12-04 08:15 | NUR ---
PATIENT COMPLAINED OF RIGHT SIDE BUTTOX PAIN /. ADMINISTERED OXYCONTIN PO PER MD ORDERED.
[2020-12-04] MEDS: PANTOPRAZOLE 40 MG TABEC PO SCH (08:19)
[2020-12-04] MEDS: HYDROmorphone 2 MG TAB PO PRN (08:19)
--- NOTE | 2020-12-04 09:00 | NUR ---
ALL SCHEDULED MEDS GIVEN. PT IS STABLE. NO SIGNS OF DISTRESS NOTED. WILL CONTINUE TO MONITOR.
--- NOTE | 2020-12-04 11:35 | NUR ---
BLOOD GLUCOSE CHECK WAS 257. INSULIN COVERAGE NEEDED. ADMINISTERED 6 UNITS OF INSULIN SQ PER MD ORDERED.
--- NOTE | 2020-12-04 13:30 | NUR ---
CHECKED ON PATIENT. PT IS STABLE. NO DISTRESS NOTED. NO COMPLAIN OF PAIN AT THE MOMENT. WILL CONTINUE TO MONITOR.
--- NOTE | 2020-12-04 15:15 | NUR ---
CHECKED ON PATIENT. PT IS STABLE. NO DISTRESS NOTED. WILL CONTINUE TO MONITOR.
[2020-12-04 16:00] VITALS: BP 157/65
--- NOTE | 2020-12-04 16:10 | NUR ---
DR. HAHN AT BEDSIDE DISCUSSING DISCHARGE ORDER.
[2020-12-04] MEDS ORDERED: AMOX-1000 PO (16:15)
[2020-12-04 16:40] VITALS: BP 157/65
--- NOTE | 2020-12-04 16:45 | NUR ---
DISCUSSED DISCHARGE FORMS WITH PATIENT. PATIENT VERBALIZES UNDERSTANDING AND SIGNED THE FORMS.
--- NOTE | 2020-12-04 17:15 | NUR ---
PATIENT DISCHARGED OFF THE UNIT. PICKED PT UP AT THE FRONT LOBBY. PT STABLE PRIOR TO DISCHARGE.
== END 2020-12-04 17:15 | disposition home or self-care (01) | DRG 602 ==
LOC: MED 03:40 → MMU 07:08 → MTU 08:04
PROVIDERS: ADMIT Family Medicine; ATTEND Family Medicine
PROC: 5A1D70Z Performance of Urinary Filtration, Intermittent, Less than 6 Hours Per Day (ICD-10-PCS; 2020-12-02)
PROC: 3E0234Z Introduction of Serum, Toxoid and Vaccine into Muscle, Percutaneous Approach (ICD-10-PCS; 2020-12-02)
PROC: 0Y900ZZ Drainage of Right Buttock, Open Approach (ICD-10-PCS; principal; 2020-12-02 08:45)
DX: L02.31 Cutaneous abscess of buttock (principal); N18.6 End stage renal disease; N17.0 Acute kidney failure with tubular necrosis; I12.0 Hypertensive chronic kidney disease with stage 5 chronic kidney disease or end stage renal disease; E87.1 Hypo-osmolality and hyponatremia; L02.215 Cutaneous abscess of perineum; E11.22 Type 2 diabetes mellitus with diabetic chronic kidney disease; Z20.822 Contact with and (suspected) exposure to COVID-19; E66.9 Obesity, unspecified; E11.51 Type 2 diabetes mellitus with diabetic peripheral angiopathy without gangrene; D63.8 Anemia in other chronic diseases classified elsewhere; E78.5 Hyperlipidemia, unspecified; E03.9 Hypothyroidism, unspecified; E83.41 Hypermagnesemia; E87.5 Hyperkalemia; E83.51 Hypocalcemia; B96.89 Other specified bacterial agents as the cause of diseases classified elsewhere; Z68.32 Body mass index [BMI] 32.0-32.9, adult; Z79.4 Long term (current) use of insulin; Z99.2 Dependence on renal dialysis; Z79.899 Other long term (current) drug therapy; Z89.511 Acquired absence of right leg below knee; Z23 Encounter for immunization
CPT/HCPCS: 36415; 71045; 72192; 80048; 80053; 82150; 82948; 83036; 83690; 83735; 83880; 84100; 84436; 84439; 84443; 84479; 84484; 84702; 85025; 85610; 85730; 87070; 87075; 87081; 87205; 90715; 93005; 96374; 99285; J0696; J1170; J2001; J2270; J2405; J2704; J3010; J3490; J7042; J7060; J7120; Q0162

== ENCOUNTER 2020-12-14 12:06 | Inpatient (IN) | payer OTHER, MEDICAID ==
[~2020-12-14] VITALS: Ht 172.7 cm; Wt 99.3 kg
[~2020-12-14 12:06] MED LIST: AMLO2.5T PO; AMOX-1000 PO; CALC-1123 PO; INSU100S45 SUBQ; INSU100S53 SC; LISI20TA30 PO; OMEP20TC12 PO
[2020-12-14 12:17] VITALS: BP 114/77
--- NOTE | 2020-12-14 12:20 | NUR ---
40 y/o F coming in from home wheelchair assisted with c/c right flank pain x 2 days. Patient presents A&Ox4, GCS 15, ambulating via wheelchair and reports 10/10 right flank pain, "punching/sharp/constant" that radiates to her RLQ. Patient states pain worsen when she coughs/sneee/breath/inhale. Patient reports associated N/V, "fever," dizziness. Denies constipation, headache, vomiting, chest pain, SOB, cough, sore throat, Covid + exposure. Patient presents with a fistula to [facility]; states MWF dialysis; completed dialysis treatment today at 1100. patient states no medications for pain and that this pain is new. Patient also states unable to void since 12/01/2020. Last BM 1130 12/14/2020 diarrhea. Pt placed onto cardica monitor; blood pressure 183/72. Bed locked in lowest position, side rails x1, call light in reach. PMH: ESRD, DM, HTN, R BELOW KNEE AMBUTATION Meds: LEVEMIR, LISINOPRIL, NOVALOG NKDASx: Cyst removal 12/01/20; R below knee ampultation, Left ankle, appendectomy 2009.
--- NOTE | 2020-12-14 12:20 | NUR ---
Patient assisted to bed 02 via wheelchair.
--- NOTE | 2020-12-14 12:43 | NUR ---
Dr. Andrew is evaluating patient at bedside.
[2020-12-14] MEDS ORDERED: MORPHINE SULFATE 4 MG/ML SYR IVP ONE ×2 (12:55→15:05)
[2020-12-14] MEDS ORDERED: ONDANSETRON 4 MG/2 ML VIAL IVP ONE (12:55)
--- NOTE | 2020-12-14 12:55 | NUR ---
Fidencio lockwood in [facility] - 12/14/20 at 1415 by MICHAEL payroll technician assisted patient to CT via shauna.
--- NOTE | 2020-12-14 13:07 | NUR ---
Lab at bedside.
--- NOTE | 2020-12-14 13:20 | NUR ---
Patient presents with both eyes open in semi-fowlers position. Lights dim per request. Pt states pain is 8/10; denies nausea. carroting machine offbearer remains in place. Respirations even/unlabored. Bed locked in lowest position, side rails x 1, call light in reach.
--- NOTE | 2020-12-14 13:21 | NUR ---
Ngoc judge swab collected, walked to lab and handed to kareen Kuo tech.
[2020-12-14 13:22] LABS: BASOPHILS # (AUTO) 0.1 K/uL (0.00-0.22); BASOPHILS % (AUTO) 0.6 % (0.0-2.0); EOSINOPHILS # (AUTO) 0.2 K/uL (0-0.4); EOSINOPHILS % (AUTO) 1.4 % (0.0-4.0); HEMATOCRIT 35.9 % (36-48); LYMPHOCYTES # (AUTO) 1.2 K/uL (2.5-16.5); LYMPHOCYTES % (AUTO) 9.6 % (20.5-51.1); MEAN CORPUSCULAR HEMOGLOBIN 32 pg (27-31); MEAN CORPUSCULAR HGB CONC 34 g/dL (33-37); MEAN CORPUSCULAR VOLUME 96.3 fL (80-94); MONOCYTES % (AUTO) 7.8 % (1.7-9.3); NEUTROPHILS # (AUTO) 10.1 K/uL (1.8-7.7); NEUTROPHILS % (AUTO) 80.6 % (42.2-75.2); PLATELET COUNT (AUTO) 269 K/uL (140-450); RED BLOOD CELL COUNT(AUTO) 3.73 MIL/uL (4.20-5.40); RED CELL DISTRIBUTION WIDTH 15.6 % (11.6-13.7); WHITE BLOOD COUNT (AUTO) 12.5 K/uL (4.8-10.8)
--- NOTE | 2020-12-14 13:25 | NUR ---
Contacted lab via telephone regarding serum test; tech will be over in a few minutes.
--- NOTE | 2020-12-14 13:30 | NUR ---
Unable to obtain urine at this time; Dr. Andrew made aware.
--- NOTE | 2020-12-14 13:31 | NUR ---
Patient resting in position of comfort, semi-fowlers. Patient states pain 8/10 at this time; minor relief after Morphine IVP. Denies any nausea. mill tender second operator remains in place. Respirations even/unlabored. Bed locked in lowest position, side rails x1, call light in reach.
[2020-12-14 13:37] LABS: ALBUMIN 3.6 g/dL (3.4-5.0); ANION GAP 13.5 (8-16); CARBON DIOXIDE 31.8 mmol/L (21-32); POTASSIUM 4.3 mmol/L (3.5-5.1); TOTAL BILIRUBIN 0.5 mg/dL (0.0-1.0)
[2020-12-14 13:41] LABS: CREATININE 5.1 mg/dL (0.6-1.3)
[2020-12-14 13:51] LABS: PROTHROMBIN TIME 9.3 secs (10.8-13.4)
--- NOTE | 2020-12-14 13:55 | NUR ---
formula technician assisted patient to CT via rsutter.
--- NOTE | 2020-12-14 14:10 | NUR ---
Patient returned from CT via gurney; placed back onto equipment monitor phototypesetting. Bed locked in lowest position, side rails x 1, call light in reach.
--- NOTE | 2020-12-14 14:30 | NUR ---
Patient states pain is 10/[address] Andrew made aware. traffic monitor specialist remains in place. Respirations even/unlabored. Bed locked in lowest position, side rails x 1, call light in reach.
--- NOTE | 2020-12-14 14:46 | NUR ---
Dr. Andrew is evaluating patient at bedside.
--- NOTE | 2020-12-14 15:26 | NUR ---
Patient states postive relief after 4mg Morphine IVP; states pain 4/10; denies any nausea. personnel monitor remains in place. Bed locked in lowest position, side rails x 1, call light in reach.
--- NOTE | 2020-12-14 15:30 | NUR ---
Report given to VERNON Rachel via telephone.
--- NOTE | 2020-12-14 15:33 | NUR ---
RECEIVED TELEPHONE REPORT FROM ER NURSE AWAITING FOR PT TO ARRIVE AT UNIT.
--- NOTE | 2020-12-14 15:47 | NUR ---
Dr. Little is evaluating the patient at bedside.
--- NOTE | 2020-12-14 16:00 | NUR ---
Patient will be admitted to care of Dr. Little. Admited to Telemetry. Will go to [id number]. Belongings list completed. Report to VERNON Rachel.
--- NOTE | 2020-12-14 16:00 | NUR ---
PT ARRIVED AT UNIT, NO DISTRESS NOTED, IV TO R HAND 24 G PATENT INTACT, SL, PT AWAKE ALERT ABLE TO LET NEEDS KNOWN, ON ROOM AIR, NO SOB NOTED, PT HAS RIGHT LEG PROSTHESIS, BKA. PT HAS LEFT AV SHUNT. ORIENT PT TO ROOM, CALL LIGHT, BED, MRSA SWAB TAKEN, INITIAL ASSESSMENT DONE, ALL SAFETY PRECAUTION MET, CALL LIGHT WITHIN REACH, WILL CONTINUE TO MONITOR.
[2020-12-14] MEDS ORDERED: POTASSIUM CHLORIDE 10 MEQ TABER PO PRN (16:15)
[2020-12-14] MEDS ORDERED: HYDROcodone/APAP 7.5/325 MG 1 TAB PO PRN (16:15)
[2020-12-14] MEDS ORDERED: ZOLPIDEM 5 MG TAB PO PRN (16:15)
[2020-12-14] MEDS ORDERED: DOCUSATE SODIUM 100 MG GELCAP PO PRN (16:15)
[2020-12-14] MEDS ORDERED: ACETAMINOPHEN 325 MG TAB PO PRN (16:15)
[2020-12-14] MEDS ORDERED: guaiFENesin DM 200/20 MG-10 ML 10 ML UDC PO PRN (16:15)
[2020-12-14] MEDS ORDERED: ONDANSETRON 4 MG/2 ML VIAL IM/IVP PRN (16:15)
[2020-12-14] MEDS ORDERED: DEXTROSE 50% 50 ML SYR IVP PRN (16:20)
[2020-12-14] MEDS ORDERED: INSULIN LISPRO SLIDING SCALE 100 UNITS/ML VIAL SUBQ PRN (16:20)
[2020-12-14 16:30] VITALS: BP 196/67
[2020-12-14] MEDS ORDERED: hydrALAZINE 20 MG/ML VIAL IVP PRN (16:40)
[2020-12-14] MEDS: BLOOD GLUCOSE MONITORING 1 DEV DEV FS SCH ×2 (17:01→20:26)
[2020-12-14] MEDS: DEXT 5% /NACL 0.9% 1,000 ML IV SCH (17:02)
[2020-12-14] MEDS: INSULIN LANTUS 100 UNITS/ML 10 ML VIAL SUBQ SCH (17:05)
[2020-12-14 17:17] LABS: CHOL/HDL RATIO 6.8 (1-4.5); FREE T4 (FREE THYROXINE) 1.07 ng/dL (0.76-1.46); PHOSPHORUS 3.7 mg/dL (2.5-4.9); THYROID STIMULATING HORMONE 2.64 uIU/mL (0.34-3.74)
[2020-12-14] MEDS ORDERED: MORPHINE SULFATE 2 MG/ML SYR IVP PRN (17:30)
--- NOTE | 2020-12-14 17:53 | NUR ---
PT C/O PAIN, CALLED DR. CORONEL REGARDING PT COMPLAINTS, PER DR TO ORDER 2MG MORPHINE IVP PRN SEVERE PAIN Q8H. MEDICATION GIVEN WILL CONTINUE TO MONITOR.
[2020-12-14] MEDS: PIPERACILLIN/TAZOBACTAM 3.375 GM in DEXTROSE 5% 50 ML IV SCH ×2 (17:54→20:32)
--- NOTE | 2020-12-14 19:30 | NUR ---
RECEIVED BEDSIDE REPORT FROM DAY SHIFT NURSE FOR CONTINUITY OF CARE. PT IS AWAKE AND ALERT, A&OX4. IN GOOD SPIRITS, MAKING JOKES ON SHIFT CHANGE. NO DISTRESS NOTED. DENIES PAIN. ON RA WITH BREATHING UNLABORED. SR ON TELE MONITORING. PT IS ANURIC STATED BY DAY SHIFT NURSE. WILL COLLECT URINE SPECIMEN IF SHE IS ABLE TO VOID AT SOME POINT ON SHIFT. SKIN IS WARM AND DRY. S/P I&D ON RIGHT BUTTOCK WITH DRESSING IN PLACE. IV IS IN THE RIGHT HAND 24 GAUGE RUNNING D5 NS AT 60 ML PER HOUR PER ORDER. RIGHT BELOW KNEE AMPUTATION WITH PROSTHESIS AT BEDSIDE. PT IS STABLE. PLAN OF CARE DISCUSSED. FALL AND STANDARD PRECAUTIONS IN PLACE.
--- NOTE | 2020-12-14 19:34 | NUR ---
ENDORSED PT TO GRADUATE ASSISTANT ATHLETIC TRAINER NURSE ABBY JUNIOR FOR CONTINUOUS OF CARE.
[2020-12-14 20:00] VITALS: BP 145/59
--- NOTE | 2020-12-14 20:26 | NUR ---
PT'S BS READING WAS 184. PT STATED SHE DID NOT HAVE DINNER. PT IS NOW NPO EXCEPT MEDS THEREFORE NO INSULIN WAS ADMINISTERED. WILL RECHECK AT 0700 AM ORDERED.
--- NOTE | 2020-12-14 20:32 | NUR ---
PT STATES SHE IS HAVING PAIN IN HER ABD AT A SCALE OF 6/10. PT SAYS IT IS AN ACHING PAIN THAT RADIATES TO THE CENTER OF HER ABD WITH A SMALL AMOUNT OF PAIN ON HER RIGHT BACK. PT WAS GIVEN NORCO FOR PAIN. WILL CONTINUE TO MONITOR.
--- NOTE | 2020-12-14 22:30 | NUR ---
PT REQUESTED FOOD TO EAT AND ICE CHIPS. PT WAS EDUCATED ON THE IMPORTANCE OF BEING NPO EXCEPT MEDS. PT VERBALIZED UNDERSTANDING. NO DISTRESS NOTED. PT IS SPEAKING APPROPRIATELY. PT IS STABLE.
[2020-12-15] VITALS: BP 134/66
--- NOTE | 2020-12-15 00:30 | NUR ---
ROUNDED ON PT. SHE IS SLEEPING IN SEMI FOWLERS POSITION. CHEST RISE AND FALL IS SYMMETRICAL. BREATHING IS UNLABORED. NO PAIN NOTED. BED IS IN THE LOWEST POSITION AND CALL LIGHT IS WITHIN REACH.
[2020-12-15] MEDS ORDERED: NACL 0.9% IRR 250 ML BOTTLE IR SCH (01:00)
[2020-12-15] MEDS ORDERED: COMPOSITE DRESSING TP SCH (01:00)
--- NOTE | 2020-12-15 01:00 | NUR ---
WOUND ON RIGHT BUTTOCK WAS ASSESSED. IT WAS ALSO CLEANSED WITH NS AND PATTED DRY. NEW DRESSING WAS APPLIED. PT DENIED PAIN AT THE SITE OF THE WOUND. PT WAS ALSO EDUCATED ON THE IMPORTANCE OF REPOSITIONING Q2H. SHE VERBALIZED UNDERSTANDING.
--- NOTE | 2020-12-15 03:00 | NUR ---
MADE ROUNDS ON PT. SHE IS ASLEEP. BREATHING IS UNLABORED. NO PAIN NOTED. BLANKET WAS PROVIDED FOR COMFORT. IV FLUIDS ARE INFUSING ORDERED. BED IS IN THE LOWEST POSITION AND PROSTHESIS IS AT THE BEDSIDE WITHIN REACH. CALL LIGHT ALSO WITHIN REACH.
[2020-12-15 04:00] VITALS: BP 155/65
--- NOTE | 2020-12-15 05:00 | NUR ---
PT IS SLEEPING. NO DISTRESS NOTED. NO SOB AND RESPIRATORY DISTRESS AT THIS TIME. NO PAIN VISIBLE. BED IS IN THE LOWEST POSITION AND BED ALARM ON.
[2020-12-15] MEDS: PIPERACILLIN/TAZOBACTAM 3.375 GM in DEXTROSE 5% 50 ML IV SCH (05:38)
[2020-12-15] MEDS: BLOOD GLUCOSE MONITORING 1 DEV DEV FS SCH (05:57)
--- NOTE | 2020-12-15 05:59 | NUR ---
PT'S BS READING WAS 197 AND INSULIN WAS PROVIDED PER SLIDING SCALE. HUMALOG INSULIN, 2 UNITS, WAS GIVEN SUBQ. MEDICATION EDUCATION WAS PROVIDED AND PT VERBALIZED UNDERSTANDING. PT IS STABLE.
[2020-12-15 06:41] LABS: BASOPHILS % (AUTO) 0.5 % (0.0-2.0); EOSINOPHILS # (AUTO) 0.2 K/uL (0-0.4); EOSINOPHILS % (AUTO) 2.2 % (0.0-4.0); HEMATOCRIT 31.7 % (36-48); HEMOGLOBIN 10.6 g/dL (12.0-16.0); LYMPHOCYTES # (AUTO) 1.5 K/uL (2.5-16.5); MEAN CORPUSCULAR HEMOGLOBIN 33 pg (27-31); MEAN CORPUSCULAR HGB CONC 33 g/dL (33-37); MEAN CORPUSCULAR VOLUME 97.5 fL (80-94); MONOCYTES # (AUTO) 1.3 K/uL (0.8-1.0); MONOCYTES % (AUTO) 12.4 % (1.7-9.3); NEUTROPHILS % (AUTO) 69.9 % (42.2-75.2); PLATELET COUNT (AUTO) 236 K/uL (140-450); RED BLOOD CELL COUNT(AUTO) 3.25 MIL/uL (4.20-5.40); RED CELL DISTRIBUTION WIDTH 15.7 % (11.6-13.7); WHITE BLOOD COUNT (AUTO) 10.1 K/uL (4.8-10.8)
[2020-12-15 07:09] LABS: CARBON DIOXIDE 30.8 mmol/L (21-32); POTASSIUM 4.8 mmol/L (3.5-5.1)
[2020-12-15 07:14] LABS: CREATININE 7.2 mg/dL (0.6-1.3)
--- NOTE | 2020-12-15 07:15 | NUR ---
ENDORSED PT TO DAY SHIFT NURSE FOR CONTINUITY OF CARE. PT IS STABLE AT THIS TIME. PLAN OF CARE DISCUSSED.
--- NOTE | 2020-12-15 07:25 | NUR ---
PT RECEIVED FROM CLINICAL BIOSTATISTICIAN RN. PT RESTING IN BED ON THE SIDE. EYES CLOSED EASY TO AROUSE. NO S/S OF DISTRESS. CALL LIGHT IS WITHIN REACH. ALL SAFETY MEASURES ARE IN PLACE. WILL CONTINUE TO MONITOR.
[2020-12-15 08:00] VITALS: BP 145/99
--- NOTE | 2020-12-15 08:40 | NUR ---
PATIENT HAS BEEN SCREENED AND CATEGORIZED HIGH NUTRITION RISK. PATIENT WILL BE SEEN WITHIN 1-2 DAYS OF ADMISSION. 12/15/20-12/16/[address]
[2020-12-15] MEDS: DEXT 5% /NACL 0.9% 1,000 ML IV SCH (08:55)
[2020-12-15] MEDS ORDERED: amLODIPine 5 MG TAB PO SCH (09:00)
[2020-12-15] MEDS ORDERED: lisinopriL 20 MG TAB PO SCH (09:00)
[2020-12-15] MEDS ORDERED: PANTOPRAZOLE 40 MG TABEC PO SCH (09:00)
--- NOTE | 2020-12-15 09:01 | NUR ---
MEDICATIONS GIVEN PER MD ORDER. PT EDUCATED. PT VERBALIZED UNDERSTANDING.PT TOLERATED WELL. PT RESTING IN BED. NO S/S OF DISTRESS. CALL LIGHT IS WITHIN REACH. ALL SAFETY MEASURES ARE IN PLACE. WILL CONTINUE TO MONITOR.
[2020-12-15] MEDS: INSULIN LANTUS 100 UNITS/ML 10 ML VIAL SUBQ SCH (09:10)
--- NOTE | 2020-12-15 09:16 | NUR ---
BG ASSESSED PER MD ORDER . BG 178. INSULIN GIVEN PER ORDER. PT EDUCATED AND VERBALIZED UNDERSTANDING. NO S/S OF DISTRESS.
[2020-12-15] MEDS ORDERED: AMOX-999 PO (09:19)
[2020-12-15] MEDS ORDERED: INSU100S53 SC (09:19)
[2020-12-15 09:42] LABS: T4 (THYROXINE) 12.9 ug/dL (4.5 - 12.0)
[2020-12-15 11:04] VITALS: BP 145/99
--- NOTE | 2020-12-15 11:06 | NUR ---
PT RESTING IN BED ON PHONE. PT STABLE
--- NOTE | 2020-12-15 11:33 | NUR ---
SOCIAL WORK NOTE: Patient's Orientation Unable To Assess Information Provided By JASON CHAIREZ - /CAREGIVER Comments SW MET WAS UNABLE TO MEET PATIENT AT BEDSIDE. SW COMPLETED ASSESSMENT WITH PATIENT'S . Yard Switch Operator, Realtionship and Phone Number JASON CHAIREZ [phone] Healthcare Power of Steel Detailer No Does Patient Have a POLST No Identifying Problems No Social Work Triggers Is A Social Work Consult Needed No Mandate Report Filed No Explanation Of Identifying Problems PATIENT IS A 40-YEAR-OLD FEMALE ADMITTED FOR DIABETES, HYPERTENSION, AND RENAL DISEASE. Admitted From Home Pre-Admission Level Of Functioning Status Total Care Level Of Functioning Comment PER /CAREGIVER, PATIENT REQUIRES ASSISTANCE WITH ALL ADLS AND IS WHEELCHAIR BOUND. Prior Resources/Services Used In Last 12 Months [facility] Prior Resources/Service Comments PATIENT RECEIVES 135 HOURS A MONTH FROM [facility]. Prior DME Wheelchair Dialysis Hemodialysis Name And Phone Number of Dialysis Facility [facility] ESRD Outpatient Days W ESRD Outpatient Time 0700 Living Situation Lives With Family House Patient Had Caregiver [place] and Contact Number Of Designated Caregiver JASON CHAIREZ - [phone] Home Support No Caregiver Issues Financial Issues No Known Financial Issue Referral To The Financial Counselor Needed No Factors/Needs No D/C Needs Identified Pt/Rep Participated In Discharge Plan Yes Patient/Family Agress With Discharge Plan Yes Discharge Plan Comments TENTATIVE DISCHARGE PLAN IS FOR PATIENT TO RETURN HOME. DC Plan Status Initiated
--- NOTE | 2020-12-15 11:49 | NUR ---
PT DISCHARGED VIA PRIVATE WHEELCHAIR. PT IV REMOVED [facility]UL[facility] INTACT. PT REFUSED DISCHARGE PICTURES. SHE CLAIMED THEY WERE TAKEN LAST NIGHT. PT TELE MONITOR REMOVED AND RETURNED. PT LEFT WITH BROTHER.
--- NOTE | 2020-12-15 13:22 | NUR ---
Wound consult not done pt. discharged.
== END 2020-12-15 11:50 | disposition home or self-care (01) | DRG 871 ==
LOC: MED 12:06 → MTU 15:09
PROVIDERS: ADMIT Family Medicine; ATTEND Family Medicine
DX: A41.9 Sepsis, unspecified organism (principal); N18.6 End stage renal disease; N17.0 Acute kidney failure with tubular necrosis; I12.0 Hypertensive chronic kidney disease with stage 5 chronic kidney disease or end stage renal disease; Z99.2 Dependence on renal dialysis; E11.22 Type 2 diabetes mellitus with diabetic chronic kidney disease; Z20.822 Contact with and (suspected) exposure to COVID-19; K80.50 Calculus of bile duct without cholangitis or cholecystitis without obstruction; E78.5 Hyperlipidemia, unspecified; E03.9 Hypothyroidism, unspecified; Z89.511 Acquired absence of right leg below knee; E66.9 Obesity, unspecified; Z68.33 Body mass index [BMI] 33.0-33.9, adult; Z90.49 Acquired absence of other specified parts of digestive tract; K31.9 Disease of stomach and duodenum, unspecified
CPT/HCPCS: 36415; 71045; 76705; 80048; 80053; 82150; 82948; 83036; 83605; 83690; 83735; 83880; 84100; 84436; 84439; 84443; 84479; 84484; 84703; 85025; 85610; 85730; 87040; 87081; 96374; 96375; 99285; J0360; J1815; J2270; J2405; J2543; J7042; J7060

== ENCOUNTER 2021-10-26 09:06 | Emergency (ER) | payer OTHER, MEDICAID ==
[~2021-10-26] VITALS: Ht 172.7 cm; Wt 101.6 kg
[~2021-10-26 09:06] MED LIST changes: -AMOX-1000 PO; +AMOX-999 PO; +OMEP-278 PO; -OMEP20TC12 PO
[2021-10-26 09:12] VITALS: BP 207/88
--- NOTE | 2021-10-26 09:20 | NUR ---
41Y FEMALE BIB SELF AND PRESENTS TO ED WITH FINGER PAIN ON LEFT HAND/2ND DIGIT FOR 2 WEEKS. PT STATES "SHE HAD A HANG NAIL AND PULLED IT WHEN SHE NOTICED HER FINGER STARTED TO BECOME RED, SWOLLEN, AND SENSITIVE TO TOUCH. FINGER IS RED/SWOLLEN UPON ASSESSMENT. PT DENIES ANY PUSS/DISCHARGE COMING FROM THE FINGER. DENIES N/V/D; SKIN IS PINK/WARM/DRY; AAOX4 WITH EVEN AND STEADY GAIT; LUNGS CLEAR BL; HR EVEN AND REGULAR; PT DENIES ANY FEVER, CP, SOB, OR COUGH AT THIS TIME; PATIENT STATES PAIN OF 10/10 AT THIS TIME; VSS; PATIENT POSITIONED FOR COMFORT; HOB ELEVATED; BEDRAILS UP X2; BED DOWN. ER MD MADE AWARE OF PT STATUS. PMH: HTN, DIALYSIS (MWF), DM NKA
--- NOTE | 2021-10-26 10:35 | NUR ---
DR. TRIPLETT BEDSIDE EVALUATING PT
[2021-10-26] MEDS ORDERED: KETOROLAC 60 MG/2 ML VIAL IM ONE (10:40)
[2021-10-26] MEDS ORDERED: CEPH-588 PO (10:49)
[2021-10-26] MEDS ORDERED: ACET-8386 PO (10:49)
[2021-10-26] MEDS ORDERED: IBUP-2213 PO (10:49)
[2021-10-26 11:20] VITALS: BP 189/86
--- NOTE | 2021-10-26 11:21 | NUR ---
Patient discharged with v/s stable. Written and verbal after care instructions given and explained. Patient alert, oriented and verbalized understanding of instructions. Ambulatory with steady gait. All questions addressed prior to discharge. ID band removed. Patient advised to follow up with PMD. Rx of KEFLEX, IBUPROFEN, AND HYDROCODONE/ACETAMINOPHEN given. Patient educated on indication of medication including possible reaction and side effects. Opportunity to ask questions provided and answered.
== END 2021-10-26 11:21 | disposition home or self-care (01) ==
LOC: MED 09:06
DX: L03.012 Cellulitis of left finger (principal); E11.22 Type 2 diabetes mellitus with diabetic chronic kidney disease; I12.0 Hypertensive chronic kidney disease with stage 5 chronic kidney disease or end stage renal disease; N18.6 End stage renal disease; Z99.2 Dependence on renal dialysis; Z79.4 Long term (current) use of insulin; Z79.899 Other long term (current) drug therapy; Z89.511 Acquired absence of right leg below knee
CPT/HCPCS: 96372; 99283; J1885